=== PATIENT | male | born 1995 ===

== ENCOUNTER 2021-06-04 09:00 | Emergency (ER) | payer OTHER, SELFPAY ==
--- NOTE | ~2021-06-04 | XR_ITS ---
EXAMINATION: XR HAND, RIGHT CLINICAL INFORMATION: Pain and swelling. Unknown injury COMPARISON: None TECHNIQUE: PA, lateral, and oblique views of the right hand. FINDINGS: There is a nondisplaced fracture mid fifth metacarpal with mild dorsal soft tissue swelling. There is minimal volar angulation. No additional bony abnormality seen.. XR/XR hand RT min 3V IMPRESSION: Transverse nondisplaced fracture mid fifth metacarpal with volar angulation and dorsal soft tissue swelling.
[2021-06-04 09:25] VITALS: BP 155/94; PULSE 101; RESP 18; TEMP 37.1; O2SAT 98; BMI 29.7
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
[2021-06-04] MEDS: Ibuprofen 800 MG TABLET PO (10:09)
== END 2021-06-04 10:38 | disposition home or self-care (01) ==
PROVIDERS: Emergency Provider Emergency Medicine
DX: S62.91XA Unspecified fracture of right hand, initial encounter for closed fracture (principal); M79.641 Pain in right hand; X58.XXXA Exposure to other specified factors, initial encounter; Y93.9 Activity, unspecified; Y92.9 Unspecified place or not applicable; Y99.9 Unspecified external cause status; Z79.899 Other long term (current) drug therapy
CPT/HCPCS: 29125; 73130; 99283; 99284

== ENCOUNTER 2021-06-11 11:15 | Outpatient (REF) | payer OTHER, SELFPAY ==
--- NOTE | ~2021-06-11 | XR_ITS ---
EXAMINATION: XR HAND, RIGHT CLINICAL INFORMATION: Pain in right hand. COMPARISON: X-ray right hand 06/04/2021. TECHNIQUE: PA, oblique, and lateral views of the right hand. FINDINGS: There is no change in the 5th metacarpal mid diaphyseal fracture demonstrating mild volar angulation. There is no apparent callus formation. There is improved adjacent soft tissue swelling. There are no new fractures. XR/XR hand RT min 3V IMPRESSION: No change in mildly angulated mid 5th metacarpal fracture.
== END 2021-06-11 11:16 | disposition home or self-care (01) ==
LOC: HO.HOSX 11:15
PROVIDERS: Visit Provider Orthopaedic Surgery
DX: S62.306D Unspecified fracture of fifth metacarpal bone, right hand, subsequent encounter for fracture with routine healing (principal)
CPT/HCPCS: 26600; 73130; 99202

== ENCOUNTER 2021-06-20 08:13 | Outpatient (REF) | payer OTHER, SELFPAY ==
--- NOTE | ~2021-06-20 | XR_ITS ---
EXAMINATION: XR HAND, RIGHT CLINICAL INFORMATION: Right hand pain COMPARISON: 06/11/2021 TECHNIQUE: PA, lateral, and oblique views of the right hand. FINDINGS: Redemonstrated fracture of the proximal to mid shaft of the fifth metacarpal. There is persistent minimal angulation across the fracture which is without significant change from prior. Fracture line remains visible, with small amount of calcified callus formation, increased from prior. Remaining osseous structures are intact. XR/XR hand RT min 3V IMPRESSION: Similar appearance of the fifth metacarpal fracture since 06/11/2021, now with minimal calcified callus formation.
== END 2021-06-20 08:14 | disposition home or self-care (01) ==
LOC: HO.HOSX 08:13
PROVIDERS: Visit Provider Orthopaedic Surgery
DX: S62.306D Unspecified fracture of fifth metacarpal bone, right hand, subsequent encounter for fracture with routine healing (principal)
CPT/HCPCS: 73130; 99212

== ENCOUNTER 2021-07-09 11:00 | Outpatient (REF) | payer OTHER, SELFPAY ==
--- NOTE | ~2021-07-09 | XR_ITS ---
EXAMINATION: XR HAND, RIGHT CLINICAL INFORMATION: Right hand pain COMPARISON: 06/20/2021 TECHNIQUE: PA, lateral, and oblique views of the right hand. FINDINGS: Again seen is a transverse fracture through the mid fifth metacarpal. Since the prior study, there has been some increased periosteal reaction, but complete bony fusion has not yet occurred. No other fractures seen. XR/XR hand RT min 3V IMPRESSION: Healing fracture fifth metacarpal
== END 2021-07-09 11:01 | disposition home or self-care (01) ==
LOC: HO.HOSX 11:00
PROVIDERS: Visit Provider Orthopaedic Surgery
DX: M79.641 Pain in right hand (principal); S62.306D Unspecified fracture of fifth metacarpal bone, right hand, subsequent encounter for fracture with routine healing; X58.XXXD Exposure to other specified factors, subsequent encounter
CPT/HCPCS: 73130; 99212

== ENCOUNTER 2021-07-31 10:44 | Outpatient (REF) | payer OTHER, SELFPAY ==
--- NOTE | ~2021-07-31 | XR_ITS ---
EXAMINATION: XR HAND, RIGHT CLINICAL INFORMATION: Right hand pain. COMPARISON: 07/09/2021 TECHNIQUE: PA, lateral, and oblique views of the right hand. FINDINGS: Again seen is a transverse fracture involving the proximal one third of the 5th metacarpal. The degree of periosteal reaction compared to the prior study is unchanged. No bony fusion has occurred as of yet. No other fracture seen. XR/XR hand RT min 3V IMPRESSION: Healing fracture of 5th metacarpal.
== END 2021-07-31 10:45 | disposition home or self-care (01) ==
LOC: HO.HOSX 10:44
PROVIDERS: Visit Provider Orthopaedic Surgery
DX: S62.306D Unspecified fracture of fifth metacarpal bone, right hand, subsequent encounter for fracture with routine healing (principal)
CPT/HCPCS: 73130; 99212

== ENCOUNTER 2021-08-28 08:56 | Outpatient (REF) | payer OTHER, SELFPAY ==
--- NOTE | ~2021-08-28 | XR_ITS ---
EXAMINATION: XR HAND, RIGHT CLINICAL INFORMATION: Pain in right hand COMPARISON: Multiple prior views of right hand. Most recent Right hand 07/31/2021 TECHNIQUE: PA, lateral, and oblique views of the right hand. FINDINGS: Transverse fracture of the mid proximal shaft of the fifth metacarpal evident on radiograph 06/04/2021 remains partially radiolucent. There is a portion of the fracture which has healed along the radial side of the bone but there is still radiolucency of at least 50% of the fracture line at the ulnar side of the bone there is been no substantial change since prior study of 07/31/2021. No new fracture or dislocation. XR/XR hand RT min 3V IMPRESSION: No change of the partially healed right fifth metacarpal fracture. No new abnormality.
== END 2021-08-28 08:57 | disposition home or self-care (01) ==
LOC: HO.HOSX 08:56
PROVIDERS: Visit Provider Orthopaedic Surgery
DX: S62.306D Unspecified fracture of fifth metacarpal bone, right hand, subsequent encounter for fracture with routine healing (principal)
CPT/HCPCS: 73130; 99212

== ENCOUNTER 2022-05-01 10:55 | Emergency (ER) | payer OTHER, SELFPAY ==
--- NOTE | ~2022-05-01 | XR_ITS ---
EXAMINATION: XR CHEST CLINICAL INFORMATION: Cough. COMPARISON: None TECHNIQUE: 2 views of the chest were obtained. FINDINGS: The lungs are clear. The cardiomediastinal silhouette is normal in size. There is no pleural effusion or pneumothorax. No acute osseous abnormality. XR/XR chest 2V IMPRESSION: No acute cardiopulmonary findings.
[2022-05-01 12:07] VITALS: BP 154/72; PULSE 99; RESP 19; TEMP 37.4; O2SAT 98; BMI 30.4
[2022-05-01 13:45] LABS: Influenza A Negative (Negative); Influenza B2 Negative (Negative)
[2022-05-01 13:46] LABS: COVID-19 Test Negative (Negative); IDNOW Serial# 16C4AD1C
--- NOTE | 2022-05-01 15:06 | ED_ITS ---
HPI - URI/Sore Throat General Chief Complaint: Upper Respiratory Symptoms Stated Complaint: L ear hearing loss/congestion Time Seen by Provider: 05/01/22 14:41 Source: patient Mode of arrival: ambulatory Limitations: no limitations History of Present Illness HPI Narrative: 26-year-old male presents for 12 days of nasal congestion, chest congestion, productive cough. Patient had a sore throat for the 1st 6 days, but it went away. Yesterday patient had reduced hearing in his left ear, felt his left ear was plugged, no pain. Today patient states he has ringing in his right ear. Patient also endorses right eye redness. No visual changes, no fevers, no pain with eye movement. Negative COVID test at home 5 days ago. Patient healthy at baseline, history of asthma as a kid, on no daily medications. Related Data Previous Rx's Medication Instructions Recorded naproxen 500 mg tablet 500 mg PO BID PRN pain #20 tabs 06/04/21 oxycodone-acetaminophen 5 mg-325 1 tab PO TID PRN pain #9 tabs 06/04/21 mg tablet (Percocet) benzonatate 200 mg capsule 200 mg PO TID 5 days #15 caps 05/01/22 benzonatate 200 mg capsule 200 mg PO TID 5 days #15 caps 05/01/22 doxycycline hyclate 100 mg capsule 100 mg PO BID 7 days #14 caps 05/01/22 doxycycline hyclate 100 mg capsule 100 mg PO BID 7 days #14 caps 05/01/22 erythromycin 5 mg/gram (0.5 %) eye 0.5 inch ophthalmic (eye) QID #3.5 05/01/22 ointment grams erythromycin 5 mg/gram (0.5 %) eye 1 appl ophthalmic (eye) 5XD #3.5 05/01/22 ointment grams Allergies Allergy/AdvReac Type Severity Reaction Status Date / Time No Known Allergies Allergy Verified 08/28/21 12:50 [No Known Allergies*] Review of Systems Constitutional: Constitutional: Denies body ache(s), Denies chills, Reports fatigue, Denies fever(s), Denies headache(s), Reports malaise and Denies weakness Eyes: Eyes: Denies blurry vision, Denies change in vision, Denies diplopia, Denies irritation, Denies itchy eyes, Denies eye pain, Denies photophobia and Denies spots in vision Comments: Red right eye ENT: Denies vertigo, Denies dizziness, Denies otalgia, Denies headache(s), Denies mouth pain, Reports nasal discharge, Reports post nasal drip, Denies sinus pain, Denies sinus pressure, Reports sore throat and Denies throat swelling Cardiovascular: Cardiovascular: Denies chest pain, Denies syncope, Denies leg edema, Denies lightheadedness, Denies Loss of Consciousness, Denies palpitations and Denies dyspnea Respiratory: Respiratory: Reports chest congestion, Reports cough, Denies hemoptysis, Denies pain on inspiration, Denies pain with cough, Denies dyspnea and Denies wheezing Gastrointestinal: Gastrointestinal: Denies abdominal pain, Denies hematochezia, Denies constipation, Denies diarrhea, Denies nausea and Denies vomiting Musculoskeletal: Musculoskeletal: Reports no additional musculoskeletal complaints Neurologic: Denies confusion, Denies vertigo, Denies dizziness, Denies syncope, Denies headache(s) and Denies weakness Psychiatric: Psychiatric: Denies anxiety, Denies confusion and Denies depression Endocrine: Endocrine: Reports fatigue and Denies palpitations Allergic/Immunologic: Allergic/Immunologic: Denies itchy eyes, Denies throat swelling and Denies wheezing PMFSH Past Medical History Medical History No known health problems Social History Social History Alcohol intake: current Alcohol intake frequency: holidays/special occasions only Patient Tobacco Use Status: Never used Tobacco Advance Directives: No Advance Directives Information Provided: Yes Current occupational status: employed 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, 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 Physical Exam Vital Signs: Vital Signs: Last Vital Signs Temp 99.3 F 05/01/22 12:07 Pulse 99 05/01/22 12:07 Resp 19 05/01/22 12:07 BP 154/72 H 05/01/22 12:07 Pulse Ox 98 05/01/22 12:07 O2 Del Method 05/01/22 12:07 BMI result Body Mass Index 30.4 Const: General: No confusion Nutritional Appearance: well nourished Orientation/consciousness: No confusion Limitations: no limitations HEENT: Head: Yes normal to inspection, Yes normocephalic and Yes atraumatic Ears: hearing grossly normal bilaterally, external ears normal, TM's normal bilaterally and EAC's normal General nose exam: Normal external nose present Face and sinus: Yes normal facial exam and Yes sinuses nontender Mouth: Normal oral and palatal mucosa present Throat: Yes posterior oropharynx normal Eyes: Conjunctivae: conjunctival abnormal right conjunctival injection diffuse; without discharge Pupils: Equal, round and reactive pupils present EOM: EOMs intact bilaterally Direct Ophthalmoscopy: No photophobia Neck: Neck: Yes full ROM, Yes no lymphadenopathy and Yes supple Resp: Effort & Inspection: normal respiratory effort and able to speak in complete sentences Auscultation: clear to auscultation bilaterally, no crackles, no rales, no rhonchi and no wheezes Cardio: Rate: regular rate Rhythm: regular rhythm Heart sounds: S1 normal heart sound present and S2 normal heart sound present GI: Inspection: Yes normal to inspection Palpation (GI): Soft to palpation, nontender, no guarding and not rigid Percussion: Yes normal to percussion Auscultation: normal bowel sounds Skin: General skin exam: no rashes or lesions noted Neuro: General: No confusion Cranial nerves: Yes Equal, round and reactive pupils present Extrem: General: Yes normal to inspection and Yes full ROM Psych: Appearance: grossly normal Affect: normal affect Attitude: cooperative Thought process: Normal thought process present Course Course Course Narrative: 26-year-old male presents for 12 days of cough and upper respiratory symptoms. Patient also has injected right eye. Vitals are stable, lungs clear to auscultation bilaterally, ENT exam benign. Patient is COVID negative, flu negative given duration of patient's symptoms, and worsening symptoms, will start patient on antibiotics. Prescribed erythromycin ointment for conjunctivitis, prescribed Tessalon Perles, rest, push fluids Reevaluation(s) Reevaluation #1: FINDINGS: The lungs are clear. The cardiomediastinal silhouette is normal in size. There is no pleural effusion or pneumothorax. No acute osseous abnormality. XR/XR chest 2V IMPRESSION: No acute cardiopulmonary findings. MDM - URI/Sore Throat Lab Data Labs: Lab Results 05/01/22 05/01/22 Range/Units 13:22 13:22 COVID-19 ([facility]) Negative (Negative) COVID-19 Clin Com See Note Influenza Type A ([facility]) Negative (Negative) Influenza Type B ([facility]) Negative (Negative) Influenza A & B Note See Note Discharge Plan Discharge Clinical Impression: Bronchitis, Conjunctivitis Patient Disposition: Home, Self-Care Instructions: Acute Bronchitis (ED), Conjunctivitis (ED) Additional Instructions: If 1 year symptoms from this illness resolve you still have ringing in your ears, call your primary care provider they may want to refer you to your nose throat. Please take medications as prescribed. Please return to the emergency room for chest pain, shortness of breath, or any other new or concerning symptoms Prescriptions: New doxycycline hyclate 100 mg capsule 100 mg PO BID 7 Days Qty: 14 0RF benzonatate 200 mg capsule 200 mg PO TID 5 Days Qty: 15 0RF erythromycin 5 mg/gram (0.5 %) ointment 1 appl ophthalmic (eye) 5XD Qty: 3.5 0RF benzonatate 200 mg capsule 200 mg PO TID 5 Days Qty: 15 0RF doxycycline hyclate 100 mg capsule 100 mg PO BID 7 Days Qty: 14 0RF erythromycin 5 mg/gram (0.5 %) ointment 0.5 inch ophthalmic (eye) QID Qty: 3.5 0RF No Action naproxen 500 mg tablet 500 mg PO BID PRN (Reason: pain) Qty: 20 0RF oxycodone-acetaminophen [Percocet] 5-325 mg tablet 1 tab PO TID PRN (Reason: pain) Qty: 9 0RF Rx Instructions: side effect is drowsiness. Do not take at work or while driving. Interventions: ED Discharge Assessment Last Done: 05/01/22 16:00 Discharge Date/Time: 05/01/22 16:00
== END 2022-05-01 16:00 | disposition home or self-care (01) ==
PROVIDERS: Emergency Provider Emergency Medicine
DX: J20.9 Acute bronchitis, unspecified (principal); H10.31 Unspecified acute conjunctivitis, right eye; R05.9 Cough, unspecified; Z20.822 Contact with and (suspected) exposure to COVID-19; Z79.899 Other long term (current) drug therapy
CPT/HCPCS: 71046; 87502; 87635; 99283

== ENCOUNTER 2023-02-20 13:46 | Emergency (ER) | payer OTHER, SELFPAY ==
--- NOTE | ~2023-02-20 | CT_ITS ---
EXAMINATION: CT HEAD WITHOUT CONTRAST CLINICAL INFORMATION: Status post head trauma. COMPARISON: None TECHNIQUE: Contiguous axial imaging was performed from the skull base to vertex without intravenous administration of contrast. This CT examination was performed using dose optimization techniques as appropriate, variously including the following: *Automated exposure control *Adjustment of mA and/or kV according to patient size (this includes techniques or standardized protocols for targeted exams where dose is matched to indication/reason for exam; i.e. extremities or head) *Use of iterative reconstruction technique DLP: 747 mGy-cm FINDINGS: There is no evidence of acute intracranial hemorrhage or edematous territorial infarction. There is no abnormal attenuation within the brain parenchyma. Mora-white matter differentiation is preserved. The ventricles are normal in size and configuration. No evidence for obstructive hydrocephalus. No abnormal mass effect or midline shift. No extra-axial fluid collections. No acute soft tissue or osseous abnormalities. The mastoid air cells and paranasal sinuses are clear. CT/CT head/brain wo IV con IMPRESSION: No evidence of acute intracranial hemorrhage or edematous territorial infarction.
[2023-02-20 13:52] VITALS: BP 145/88; PULSE 92; RESP 20; TEMP 36.8; O2SAT 98; BMI 32.7
--- NOTE | 2023-02-20 13:59 | ED.GENADULT ---
HPI - General Adult General Chief complaint: General Medical Stated complaint: possible concussion? Time Seen by Provider: 02/20/23 15:05 Source: patient Mode of arrival: ambulatory Limitations: no limitations History of Present Illness HPI narrative: 27-year-old male who had a head strike 1 week ago on a concrete counter who presents now with continued headache, nausea, brain fog. Patient denies any loss of consciousness. Denies any previous history of concussions. He denies any associated vision changes, neck pain, vomiting, dizziness. Related Data Previous Rx's Medication Instructions Recorded naproxen 500 mg tablet 500 mg PO BID PRN pain #20 tabs 06/04/21 oxycodone-acetaminophen 5 mg-325 1 tab PO TID PRN pain #9 tabs 06/04/21 mg tablet (Percocet) benzonatate 200 mg capsule 200 mg PO TID 5 days #15 caps 05/01/22 benzonatate 200 mg capsule 200 mg PO TID 5 days #15 caps 05/01/22 doxycycline hyclate 100 mg capsule 100 mg PO BID 7 days #14 caps 05/01/22 doxycycline hyclate 100 mg capsule 100 mg PO BID 7 days #14 caps 05/01/22 erythromycin 5 mg/gram (0.5 %) eye 0.5 inch ophthalmic (eye) QID #3.5 05/01/22 ointment grams erythromycin 5 mg/gram (0.5 %) eye 1 appl ophthalmic (eye) 5XD #3.5 05/01/22 ointment grams Allergies Allergy/AdvReac Type Severity Reaction Status Date / Time No Known Allergies Allergy Verified 02/20/23 14:22 [No Known Allergies*] Review of Systems Review of Systems: Yes all other systems are reviewed and are negative Constitutional: Constitutional: Reports no additional constitutional complaints, Denies body ache(s), Denies chills, Denies fever(s), Reports headache(s) and Denies weakness Eyes: Eyes: Reports no additional eye complaints and Denies change in vision ENT: Reports system reviewed and no additional complaints, except as documented, Denies dizziness, Reports headache(s), Denies nasal congestion, Denies nasal discharge and Denies neck pain Cardiovascular: Cardiovascular: Reports no additional cardiovascular complaints, Denies chest pain, Denies leg edema and Denies dyspnea Respiratory: Respiratory: Reports no additional respiratory complaints, Denies cough and Denies dyspnea Gastrointestinal: Gastrointestinal: Reports no additional gastrointestinal complaints, Denies abdominal pain, Denies diarrhea, Reports nausea and Denies vomiting Genitourinary: Genitourinary: Denies urinary incontinence Musculoskeletal: Musculoskeletal: Reports no additional musculoskeletal complaints, Denies back pain, Denies arthralgias, Denies joint swelling, Denies neck pain, Denies numbness and Denies tingling Integumentary/Breasts: Skin/Breast: Reports system reviewed and no additional complaints, except as docu and Denies rash Neurologic: Reports system reviewed and no additional complaints, except as documented, Denies dizziness, Reports headache(s), Denies numbness, Denies tingling and Denies weakness PMFSH Past Medical History Attestation statement: The following information was validated with the patient. 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 Physical Exam ED Vital Signs: Vital Signs - 24 hr 02/20/23 13:52 Temperature 98.3 F Pulse Rate 92 Respiratory Rate 20 Blood Pressure 145/88 H Pulse Oximetry 98 Oxygen Delivery Method Room Air BMI result Body Mass Index 32.7 Const General: cooperative, healthy appearing, comfortable and no acute distress Orientation/consciousness: patient oriented x3 Limitations: no limitations HENMT Head: Yes normal to inspection, No Fung's sign and No raccoon eyes Ears: hearing grossly normal bilaterally and TM's normal bilaterally General nose exam: Normal external nose present Face and sinus: Yes normal facial exam Throat: Yes posterior oropharynx normal and Yes tonsils normal Eyes General: appearance normal, both eyes and all related structures Pupils: Equal, round and reactive pupils present Neck Other: No cervical midline tenderness, step-offs deformities Neck: Yes normal visual inspection and Yes full ROM Chest Chest palpation & inspection: normal inspection of the chest Resp Effort & Inspection: normal respiratory effort Auscultation: clear to auscultation bilaterally Cardio Rate: regular rate Rhythm: regular rhythm Peripheral pulses: Peripheral pulses 2+ throughout GI Inspection: Yes normal to inspection Palpation (GI): Soft to palpation and nontender General: Yes no CVA tenderness Back/Spine/Pelvis Back: no CVA tenderness Thoracic/Lumbar Spine: thoracic and lumbar spine normal to inspection Skin General skin exam: no rashes or lesions noted Neuro General: patient oriented x3 and moves all extremities Cranial nerves: Yes CN's II-XII intact bilaterally, Yes Equal, round and reactive pupils present, Yes Bilaterally intact EOM present, Yes Nystagmus not present, Yes Normal facial strength present and Yes Midline tongue present Cognition (Neuro): normal cognition Gait exam (Neuro): Normal gait present Motor exam (neuro): 5/5 motor strength present throughout Sensory Exam: Normal double simultaneous stimulation for sensation Extrem General: Yes normal to inspection, Yes no pedal edema and Yes no calf tenderness Course Course Course Narrative: This is an RME: Additional HPI, ROS, PE not included below will be deferred to primary provider. 27 year old male presents w/ N/V, fatigue, headache X1 week s/p purposely smashing his head on a concrete counter top he says he does not think he lost consciousness however cannot recall what he hit his head on exactly, patient poor historian. NIH stroke scale 0 at triage. Ambulating with steady gait normal coordination, patient well appearing. No signs of depressed skull fracture CT of head Reevaluation(s) Reevaluation #1: CT head is negative. Likely concussion. Reviewed head injury care for home with the patient. Reviewed worrisome signs and symptoms of when to return to the emergency room. Comfortable plan for discharge home. Medications Administered Discontinued Medications Generic Name Dose Route Start Last Admin Trade Name Freq PRN Reason Stop Dose Admin Acetaminophen 975 mg 02/20/23 15:40 02/20/23 15:43 Acetaminophen 325 Mg Tablet PO 02/20/23 15:41 975 mg ONCE ONE Administration Medical Decision Making Medical Decision Making MDM Narrative: 27-year-old male with a head strike 1 week ago now with continued headache, nausea and brain fog. Normal neuro exam with no focal deficits. Due to the persistent symptoms a CT of the head was ordered from triage. Differential Diagnosis Differential Diagnoses: The differential diagnosis associated with the presentation includes Less likely subarachnoid hemorrhage, skull fracture. Likely concussion Independent Interpretation I performed an independent interpretation of an: CT Scan Interpretation: I independently reviewed the CT scan and agree with the radiologist report Radiology Impression Discussion of test interpretation with radiology: I have reviewed the radiologist's reading. Radiologist Impression: [address] [address] [address] Scan Report Signed Patient: Neto Pabon MR#: [id number] : 1995 Acct:[id number] Age/Sex: 27 / M ADM Date: 02/20/23 Loc: .ED Attending Dr: Ordering Physician: Yudi Staples Date of Service: 02/20/23 Procedure(s): CT head/brain wo IV con Accession Number(s): [id number] cc: Yudi Staples~ EXAMINATION: CT HEAD WITHOUT CONTRAST CLINICAL INFORMATION: Status post head trauma.? COMPARISON: None TECHNIQUE: Contiguous axial imaging was performed from the skull base to vertex without intravenous administration of contrast. This CT examination was performed using dose optimization techniques as appropriate, variously including the following: *Automated exposure control *Adjustment of mA and/or kV according to patient size (this includes techniques or standardized protocols for targeted exams where dose is matched to indication/reason for exam; i.e. extremities or head) *Use of iterative reconstruction technique DLP: 747 mGy-cm FINDINGS: There is no evidence of acute intracranial hemorrhage or edematous territorial infarction. There is no abnormal attenuation within the brain parenchyma. Mora-white matter differentiation is preserved. The ventricles are normal in size and configuration. No evidence for obstructive hydrocephalus. No abnormal mass effect or midline shift. No extra-axial fluid collections. No acute soft tissue or osseous abnormalities. The mastoid air cells and paranasal sinuses are clear. ? CT/CT head/brain wo IV con IMPRESSION: No evidence of acute intracranial hemorrhage or edematous territorial infarction. Discharge Plan Discharge Clinical Impression: Concussion Patient Disposition: Home, Self-Care Instructions: Concussion (ED) Additional Instructions: Limit screen time Get plenty a brain rest Take Tylenol or Motrin for pain Follow-up with primary care doctor No sports or gym until feeling improved Prescriptions: No Action naproxen 500 mg tablet 500 mg PO BID PRN (Reason: pain) Qty: 20 0RF oxycodone-acetaminophen [Percocet] 5-325 mg tablet 1 tab PO TID PRN (Reason: pain) Qty: 9 0RF Rx Instructions: side effect is drowsiness. Do not take at work or while driving. doxycycline hyclate 100 mg capsule 100 mg PO BID 7 Days Qty: 14 0RF benzonatate 200 mg capsule 200 mg PO TID 5 Days Qty: 15 0RF erythromycin 5 mg/gram (0.5 %) ointment 1 appl ophthalmic (eye) 5XD Qty: 3.5 0RF benzonatate 200 mg capsule 200 mg PO TID 5 Days Qty: 15 0RF doxycycline hyclate 100 mg capsule 100 mg PO BID 7 Days Qty: 14 0RF erythromycin 5 mg/gram (0.5 %) ointment 0.5 inch ophthalmic (eye) QID Qty: 3.5 0RF Referrals: Physician,Unknown J [Primary Care Provider] - Stand Alone Forms: Work/School Release Interventions: ED Discharge Assessment Last Done: 02/20/23 16:30 Discharge Date/Time: 02/20/23 16:31
[2023-02-20] MEDS: Acetaminophen 325 MG TABLET 975 MG PO (15:43)
--- NOTE | 2023-02-20 15:45 | PC.NURSE ---
pt reporting 6/10 pain in head, medicated per dec.
== END 2023-02-20 16:31 | disposition home or self-care (01) ==
PROVIDERS: Emergency Provider Student in an Organized Health Care Education/Training Program
DX: S06.0X0A Concussion without loss of consciousness, initial encounter (principal); R51.9 Headache, unspecified; Y29.XXXA Contact with blunt object, undetermined intent, initial encounter; Y93.9 Activity, unspecified; Y92.9 Unspecified place or not applicable; Y99.9 Unspecified external cause status; Z79.899 Other long term (current) drug therapy
CPT/HCPCS: 70450; 99284